=== PATIENT | female | born 1960 | race Caucasian/White ===

== ENCOUNTER → 2023-11-26 13:14 | Outpatient (REF) | payer BC, SELFPAY | LOC: WDC 13:14 | PROVIDERS: ATTENDING PHYSICIAN Nurse Practitioner Adult Health | DX: Z12.31 Encounter for screening mammogram for malignant neoplasm of breast (principal) | CPT/HCPCS: 77063; 77067 ==

== ENCOUNTER 2024-02-04 16:28 | Day surgery (SDC) | payer BC, SELFPAY ==
[2024-02-04] VITALS (15 sets, daily range): BP systolic 134–182; BP diastolic 64–98; BMI 25.2
--- NOTE | 2024-02-04 05:43 | EDRN ---
Pt says she went to bed at 2200 and woke at 0100 with abd pain in middle upper abdomen. Pain is constant and if pt stands, she notices the pain lessens. Pain described as dull and achy. No n/v, cp, sob, fever/chills/cough, urinary symptoms,
change in appetite. 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 No abd surgeries. Pt had normal bowel movement before leaving house to come to ED. No diarrhea. Pt admits to drinking 2 glasses
of wine daily since September.
[2024-02-04 05:58] LABS: % Basophils 0.2 % (0-2); % Eosinophils 0.3 % (0-6); % Immature Granulocytes 0.4 % (0-0.5); % Lymphocytes 10.2 % (20.5-51.1); % Monocytes 6.4 % (1.7-9.3); % Neutrophils 82.5 % (42.2-75.2); Absolute Immature Granulocytes 0.1 10^3/uL (0-0.05); Absolute Lymphocytes 1.3 10^3/uL (1.2-3.4); Absolute Monocytes 0.8 10^3/uL (0.1-0.6); Absolute Neutrophils 10.4 10^3/uL (1.4-6.5); Hematocrit 36.7 % (37.0-47.0); Hemoglobin 12.9 g/dL (12.0-16.0); Mean Corp Hgb Conc. 35.1 g/dL (33.0-37.0); Mean Corpuscular Hgb 31.7 pg (27.0-31.0); Mean Corpuscular Volume 90.2 fL (81.0-99.0); Mean Platelet Volume 10.8 fL (7.4-10.4); Nucleated Red Blood Cells % 0 %; Platelet Count 162 10^3/uL (130-400); Red Blood Cell Count 4.07 10^6/uL (4.20-5.40); Red Cell Dist. Width 12.8 % (11.5-14.5); White Blood Cell Count 12.6 10^3/uL (4.8-10.8)
[2024-02-04 06:12] LABS: Urine Albumin Negative (Neg - Trace); Urine Bilirubin Negative (Negative); Urine Character Clear (Clear); Urine Color Yellow; Urine Glucose Negative (Negative); Urine Ketone Negative (Negative); Urine Leukocyte Negative (Negative); Urine Nitrite Negative (Negative); Urine Occult Blood Trace (Negative); Urine Urobilinogen Negative (Neg - 1+); Urine pH 6.5 (5.0-9.0)
[2024-02-04 06:13] LABS: Blood Urea Nitrogen 16 mg/dl (7-17); Glucose 109 mg/dl (70-99)
[2024-02-04 06:14] LABS: ALT (SGPT) 47 U/L (0-35); AST (SGOT) 49 U/L (14-36); Albumin 4.8 g/dl (3.5-5.0); Alkaline Phosphatase 76 U/L (38-126); Calcium 9.5 mg/dl (8.4-10.2); Carbon Dioxide 27 mmol/L (22-30); Chloride 104 mmol/L (98-107); Estimated Creatinine Clearance 81 ml/min; Lipase 85 U/L (23-300); Potassium 4.3 mmol/L (3.5-5.1); Sodium 139 mmol/L (135-145); Total Bilirubin 1.6 mg/dl (0.2-1.3); Total Protein 7.3 g/dl (6.3-8.2); eGFR > 60.00
--- NOTE | 2024-02-04 06:17 | ED.GENMED ---
History of Present Illness
General
Chief Complaint: Abdominal Pain
Time Seen by Provider: 02/04/24 06:03
History of Present Illness
History of Present Illness:
64-year-old female without significant past medical history presenting to the emergency department for acute onset of abdominal pain. Patient reports that she woke up around 1 AM with generalized abdominal pain. She reports that the pain has been
constant and dull. Denies ever having symptoms like this in the past. Pain has not been relieved. Did have a normal bowel movement prior to arrival. Denies any associated nausea or vomiting. Denies any abdominal surgeries in the past. Denies
any history of reflux. Denies any association with food. She did not try any medications prior to arrival for symptoms. Denies fever or systemic symptoms. Denies chest pain or difficulty breathing. Denies urinary complaints. Does note a lot of
stress at home, has been caring for her father. Denies additional acute medical complaints.
Past History
Past History
ED Past Medical History: None
ED Past Surgical History: Gynecological and Other ([place] teeth)
Social History
Tobacco: Non-smoker
Alcohol: Occasional
Drug: None
Living: with family
Employment: Employed
Family History
Family History: Other (CVA at a young age)
Phy Exam
Physical Exam
Physical Exam:
General: Well-appearing, no clinical signs of dehydration, nontoxic and in no acute distress
HEENT: protecting airway
Neck: appears supple
CV: Normal heart rate, regular rhythm, no evidence of cyanosis
Resp: No accessory muscle use, no increased work of breathing, lungs clear to auscultation bilaterally
Abd: Soft and non-distended, generalized tenderness, slightly more focal to the right lower quadrant, normal bowel sounds
Extremities: No deformities, no swelling, no erythema, pulses and sensation intact
Neuro: alert, no focal neurologic deficit
: deferred
Rectal: deferred
Psych: Normal affect
Skin: Intact
Course
Orders/Labs/Results
Orders:
Orders
02/04/24 05:35
IV Insert/Care/Rem.- Treatment PRN
02/04/24 05:46
Complete Blood Count/With Diff Urgent
Comprehensive Metabolic Panel Urgent
Lipase Urgent
02/04/24 06:04
Urinalysis Reflex To Culture Urgent
Date Specimen was Collected: 02/04/24
Time Specimen was Collected: 06:02
Urine Microscopic Reflex Cult Urgent
02/04/24 06:15
CT Abd/pel W Iv And Oral Contr Urgent
Comment:
Reason For Exam: general pain, periumbilical, RLQ
0.9% Sodium Chloride 500 ml [Nss] 500 ml IV BOLUS
Iohexol [Omnipaque] See Protocol PO NOW STA
Ondansetron Injectable [Zofran] 4 mg IV NOW STA
02/04/24 07:10
US Abdomen Complete/Upper Urgent
Reason For Exam: RUQ
02/04/24 09:42
CefTRIAXone [Rocephin] 1,000 mg IV NOW STA
02/04/24 09:43
MetroNIDAZOLE 500 MG/100 ML [Flagyl 500 mg] 100 ml IV NOW
Abnormal Lab Results
02/04/24 02/04/24
05:46 06:04
WBC 12.6 H 10^3/uL
(4.8-10.8)
RBC 4.07 L 10^6/uL
(4.20-5.40)
Hct 36.7 L %
(37.0-47.0)
MCH 31.7 H pg
(27.0-31.0)
MPV 10.8 H fL
(7.4-10.4)
Abs Immat Gran (auto) 0.1 H 10^3/uL
(0-0.05)
Absolute Neuts (auto) 10.4 H 10^3/uL
(1.4-6.5)
Absolute Monos (auto) 0.8 H 10^3/uL
(0.1-0.6)
Neutrophils % 82.5 H %
(42.2-75.2)
Lymphocytes % 10.2 L %
(20.5-51.1)
Glucose 109 H mg/dl
(70-99)
Total Bilirubin 1.6 H mg/dl
(0.2-1.3)
AST 49 H U/L
(14-36)
ALT 47 H U/L
(0-35)
Ur Occult Blood Reflex Trace A
(Negative)
Urine RBC 3-6 A /HPF
(0-2)
02/04/24 05:46
02/04/24 05:46
Vital Signs
Initial and Last Documented VS:
Initial Vital Signs
Temp Pulse Resp BP Pulse Ox
98.2 F 76 16 182/98 99
02/04/24 05:10 02/04/24 05:10 02/04/24 05:10 02/04/24 05:10 02/04/24 05:10
Last Documented Vital Signs
Temp Pulse Resp BP Pulse Ox
98.2 F 74 16 149/85 98
02/04/24 05:10 02/04/24 06:32 02/04/24 06:32 02/04/24 06:32 02/04/24 06:32
MDM/Problems Addressed
MDM/Problems Addressed:
64-year-old female presenting for acute onset of abdominal pain, onset prior to arrival. Vital signs are significant for hypertension.
On physical exam, patient is well-appearing, resting comfortably, nontoxic. Benign cardiac and pulmonary exam. On abdominal exam, abdomen is soft, nondistended with normal bowel sounds. She has generalized tenderness, slightly more focal to the
right lower quadrant. Differential considerations include enteritis versus gastritis versus appendicitis. No focal right upper quadrant tenderness, lower suspicion for cholelithiasis or cholecystitis. Patient had nursing protocol placed prior to
my assessment, with CBC consistent with leukocytosis. For this reason do feel patient warrants CT abdominal imaging. Will obtain p.o. and IV contrast for rule out acute intra-abdominal pathology. Will also obtain urinalysis.
07:30 - patient with slight elevation in bilirubin and mild transaminitis. For this reason will obtain right upper quadrant ultrasound imaging as well.
08:00 - Ultrasound within normal limits, pending CT.
09:50 -CT consistent with acute appendicitis. Antibiotics ordered. Surgery on-call made aware, Dr. Magana. Patient updated
*Critical Care Note
Total Time (30-74mins, 75-104mins- exclusive of procedures): Not Applicable
ED Attending Note
-
Portions of this chart may have been created with voice recognition software.� Occasional wrong word or��sound alike� substitutions may have occurred due to the inherent limitations of voice recognition software.
Discharge Plan
Departure
Prescriptions:
No Action
No Current Medications
0
Referrals:
Mikayla Jacome CRNP [Family Provider] -
Interventions
Interventions:
*Risk Screen - Suicide Last Done: 02/04/24 05:10
*General Assessment Last Done: 02/04/24 05:10
*Neglect/Abuse Screening Last Done: 02/04/24 05:10
ED- Fall Risk Assessment Last Done: 02/04/24 05:10
*ED COVID-19 Vaccine History Last Done: 02/04/24 05:10
BL-Bjpinz-Qmciesdowy Assessment Last Done: 02/04/24 05:58
Discharge Date and Time
Print Language: AMERICAN
[2024-02-04] MEDS: NSS 500 IV (06:26)
[2024-02-04] MEDS: ZOFRAN 4 MG IV (06:27)
[2024-02-04 06:28] LABS: Urine Squamous Cell 0-2 /LPF (Few); Urine White Cell 0-2 /HPF (0-5)
[2024-02-04] MEDS: OMNIPAQUE 50 ML PO (06:30)
[2024-02-04] MEDS: ROCEPHIN 1000 MG IV (10:29)
[2024-02-04] MEDS: FLAGYL 500 MG 100 IV (10:29)
--- NOTE | 2024-02-04 13:21 | HPS.HSE ---
Addendum entered and electronically signed by Homero Magana MD 02/04/24 16:20:
Patient seen and examined with surgical PRODUCT PROMOTER SALES PERSON. Agree with documented history and physical consistent with my simultaneous evaluation and examination.
HPI: 64-year-old female with acute onset of abdominal pain waking her from sleep which is localized to the right lower quadrant. No similar episodes like this in the past. Some mild anorexia and nausea but no vomiting. She moved her bowels this
a.m. which was a bit looser but none since.
No significant past medical history. No past abdominal surgical history.
AF VSS
ABD: Soft, nondistended, tenderness palpation localized in the right lower quadrant with voluntary guarding or rebound.
CT abdomen/pelvis: Dilated fluid-filled appendix with surrounding phonatory changes and wall enhancement consistent with acute appendicitis.
Assessment/plan: 64-year-old female presented with acute appendicitis. I reviewed with the patient treatment options including both operative and nonoperative management of acute appendicitis. We discussed the risks and benefits of various
approaches and the patient wishes to pursue appendectomy for definitive care.
Laparoscopic appendectomy was reviewed in detail including the operative technique, alternative treatment options, benefits and potential risk such as but not limited to bleeding, infectious or related complications, iatrogenic injury to surrounding
viscera. We discussed the typical postoperative recovery pending operative findings. Any of the patient's concerns or questions were fully addressed and written informed consent was obtained.
Patient has been added onto the OR schedule for appendectomy today
Ceftriaxone and Flagyl initiated in the emergency department
Original Note:
Family Physician
-
Family Physician: Mikayla Jacome
Chief Complaint
-
abdominal pain
History of Present Illness
Ms Gamez is a 64 yo female with a h/o left radial orif and gilbert's presents through the ED with generalized abdominal pain which awakened her from sleep around 1am now localizing to the right lower quadrant. She denies n/v. She was able to pass a
BM prior to arrival. She denies urinary changes. She denies fevers or chills.
Medical History
Past Medical History
Past Medical History: Reports Other (Gilbert syndrome, Vit D def)
Past Surgical History: Reports Orthopedic (left radial ORIF)
Social History
Tobacco: Non-smoker
Alcohol: Occasional
Living: With Family (cares for elderly father)
Employment: Employed (MA at [employer])
Family History
Family History: Cancer (colon ca in father)
Allergies / Home Medications
Allergies reflects when Allergies were last updated in [facility].
Home Medications with original date entered in [facility]
Allergy/Medication List:
Patient Allergies
Allergy/AdvReac Type Severity Reaction Status Date / Time
No Known Allergies Allergy Verified 02/04/24 05:09
�Medication �Instructions �Recorded �Confirmed �Type
No Meds [No Current Medications] 02/04/24 02/04/24 History
Review of Systems
-
A 12 point ROS was completed and negative except as noted: Yes
Physical Exam
Vital Signs
Vital Signs
Temp Pulse Resp BP Pulse Ox
98.2 F 74 16 149/85 98
02/04/24 05:10 02/04/24 06:32 02/04/24 06:32 02/04/24 06:32 02/04/24 06:32
Physical Exam
General: Well Developed and Well Nourished
HEENT: Moist mucous membranes
GI: Soft, Non Distended and Tender (rlq)
Skin: Warm
Neuro: Awake, Alert and AO x 3
Psych: Calm
Laboratory Results
-
02/04/24 05:46
02/04/24 05:46
Laboratory Results
Total Bilirubin 1.6 mg/dl (0.2-1.3) H 02/04/24 05:46
AST 49 U/L (14-36) H 07/06/24 05:46
ALT 47 U/L (0-35) H 02/04/24 05:46
Alkaline Phosphatase 76 U/L (38-126) 02/04/24 05:46
Lipase 85 U/L (23-300) 02/04/24 05:46
Data Reviewed
-
CT Scan: Image Personally Visualized and interpreted, Report Reviewed by me, Discussed with Physician and Discussed with Patient
Lab Data: Labs Reviewed by me, Discussed with Physician and Discussed with Patient
Old Records: Reviewed
Impression/Plan
-
IMPRESSION:
64 yo female with a h/o Gilbert's and no prior abdominal surgeries presenting with abdominal pain which began around 1 am this morning and is localized to the RLQ. No f/c. No n/v. Leukocytosis on laboratory findings. LFT's abnormal in keeping with
h/o Gilbert's. CT imaging reviewed with findings of acute appendicitis without abscess/free air or evidence of perforation
PLAN:
Keep NPO
OR later today for lap appi
ABX given in ED
Analgesics/antiemetics prn
IVF while NPO
SCD's for preop vte ppx, lovenox post op
[2024-02-04] MEDS: NSS 1000 IV ×2 (15:14→18:54)
--- NOTE | 2024-02-04 16:20 | W.SUR.PREOP ---
Pre-Operative Surgical Note
-
I have examined this patient prior to the performance of the scheduled procedure.
The patient's condition is unchanged from the time of the current History and
Physical and the patient is able to undergo the scheduled procedure.
--- NOTE | 2024-02-04 18:03 | W.IMMPOSTOP ---
Addendum entered and electronically signed by Homero Magana MD 02/04/24 18:12:
#[id number]
Original Note:
Surgical Immed Post Op Note
-
Primary Surgeon: Izzy
Assisting Surgeon: Jae Barreto PGY-1
Pre-op Diagnosis: Acute appendicitis
Post-op Diagnosis: Acute appendicitis
Procedure Performed: Laparoscopic appendectomy
Anesthesia Type: GETA +0.25% Marcaine
Specimen / Cultures: Appendix
Estimated Blood Loss: 6 mL
Complications: None immediate
Operative Findings: Acutely inflamed and indurated appendix. Retroperitoneal/retrocecal location tucked underneath ileocecal valve/terminal ileum. Appendix carefully mobilized without disruption. No purulence, no abscess. Appendix divided flush
with the cecum utilizing Endo BLANCA steele 30 mm stapler.
Plan: Routine postoperative care, continue antibiotics initially postoperatively, advance diet as tolerated
Patient's updated via phone call postop
[2024-02-04] MEDS: ZOSYN 50 IV (19:36)
--- NOTE | 2024-02-04 19:45 | PTCARENOTE ---
Report received from pacu. Aaox3. Three lap sites to abd CDI and open to air w/ surgi glue present. Vss. Nss. @80cc/hr. Zosyn infusing. Plan of care updated. Call parry in reach. Will monitor.
[2024-02-05] MEDS: ZOSYN 50 IV ×2 (03:12→07:51)
[2024-02-05 03:19] VITALS: BP 144/76
[2024-02-05] MEDS: NSS 1000 IV (06:25)
[2024-02-05 07:30] VITALS: BP 146/71
[2024-02-05] MEDS: TYLENOL 650 MG PO (07:50)
--- NOTE | 2024-02-05 10:06 | W.PN.GS2 ---
Addendum entered and electronically signed by Homero Magana MD 02/05/24 10:18:
Patient seen and examined with surgical FARM TECHNICIAN. Agree with documented progress note
Patient doing well with her postoperative recovery. Minimal incisional pain. No significant abdominal pains.
Tolerating dietary advancement without any nausea, vomiting abdominal bloating or distention
AFVSS
ABD: Soft, nondistended, surgical sites with glue dressings, clean, no erythema, no drainage.
A/P: POD #1 status post lap appendectomy
DC home
No further antibiotics on discharge as uncomplicated acute appendicitis
Outpatient follow-up in 2 weeks with myself, DC instructions reviewed
Original Note:
Today's Communication / Plan
-
Dispo planning
Assessment / Plan
-
64 yo female who presented with acute appendicitis now POD #1 lap appi
AFVSS
Tolerating diet
Following expected post operative course
--Continue regular diet
--OTC analgesics upon d/c
--No need for further abx
Dispo planning
Subjective Data
-
Date of Service: February 05, 2024
Patient seen and examined at bedside with Dr. Magana. Denies n/v. Tolerating diet. Minimal post op soreness. Occasional gas cramping but passing flatus.
Objective Data
-
Intake and Output
02/04/24 02/05/24 02/06/24
06:59 06:59 06:59
Intake Total 1581 / 1581 610 / 610
Balance 1581 / 1581 610 / 610
Intake:
Oral fluids 480 / 480 240 / 240
IV fluids (Total) 1001 / 1001 320 / 320
NSS /
Normosol 200 / 200
IV piggybacks 100 / 100 50 / 50
Other:
Number of approximated SMALL 1
amounts of urine
Number of approximated LARGE 2
amounts of urine
Vital Signs
Temp Pulse Resp BP Pulse Ox
98.1 F 62 16 146/71 98
02/05/24 07:30 02/05/24 07:30 02/05/24 07:30 02/05/24 07:30 02/05/24 07:30
Lab Results
02/04/24 05:46
02/04/24 05:46
Calcium 9.5 mg/dl (8.4-10.2) 02/04/24 05:46
Total Bilirubin 1.6 mg/dl (0.2-1.3) H 02/04/24 05:46
AST 49 U/L (14-36) H 02/04/24 05:46
ALT 47 U/L (0-35) H 02/04/24 05:46
Alkaline Phosphatase 76 U/L (38-126) 02/04/24 05:46
Total Protein 7.3 g/dl (6.3-8.2) 02/04/24 05:46
Albumin 4.8 g/dl (3.5-5.0) 02/04/24 05:46
Physical Exam
-
NAD
ABD soft, NT, ND
Incisions well approximated, intact glue, minimal ecchymosis
[2024-02-05 10:50] VITALS: BP 154/83
== END 2024-02-05 11:21 | disposition home or self-care (01) ==
LOC: OR 16:28
PROVIDERS: Emergency Medicine; ATTENDING PHYSICIAN Surgery; EMERGENCY PHYSICIAN Student in an Organized Health Care Education/Training Program; FAMILY PHYSICIAN Nurse Practitioner Adult Health
DX: K35.80 Unspecified acute appendicitis (principal)
CPT/HCPCS: 44970; 88304; 74177; 76700; 80053; 81003; 81015; 83690; 85025; 96361; 96365; 96375; 99285; Q9967

== ENCOUNTER → 2024-04-18 17:48 | Outpatient (REF) | payer BC, SELFPAY ==
[2024-04-18 20:27] LABS: ALT (SGPT) 51 U/L (0-35); AST (SGOT) 36 U/L (14-36); Albumin 4.5 g/dl (3.5-5.0); Alkaline Phosphatase 87 U/L (38-126); Blood Urea Nitrogen 21 mg/dl (7-17); Calcium 9.7 mg/dl (8.4-10.2); Carbon Dioxide 27 mmol/L (22-30); Chloride 102 mmol/L (98-107); Glucose 103 mg/dl (70-99); HDL Cholesterol 79 mg/dl; LDL Cholesterol, Calculated 188 mg/dl; Potassium 4.5 mmol/L (3.5-5.1); Sodium 144 mmol/L (135-145); Total Bilirubin 1.3 mg/dl (0.2-1.3); Total Cholesterol 293 mg/dl (50-199); Total Protein 7.3 g/dl (6.3-8.2); Triglyceride 131 mg/dl (10-149); Very Low Density Lipoprotein 26 mg/dl (0-30); eGFR > 60.00
[2024-04-18 20:42] LABS: Vitamin D, 25-OH*** 20.8 ng/mL (30-80)
[2024-04-18 20:56] LABS: TSH Reflex To Free T4 2.41 uIU/ml (0.47-4.68)
[2024-04-18 21:15] LABS: Vitamin B12 403 pg/ml (239-931)
== END ==
LOC: CLAB 17:48
PROVIDERS: ATTENDING PHYSICIAN Nurse Practitioner Adult Health
DX: Z00.00 Encounter for general adult medical examination without abnormal findings (principal); E53.9 Vitamin B deficiency, unspecified; E78.00 Pure hypercholesterolemia, unspecified
CPT/HCPCS: 36415; 80053; 80061; 82306; 82607; 84443

== ENCOUNTER → 2025-01-02 10:44 | Outpatient (REF) | payer BC, SELFPAY | LOC: WDC 10:44 | PROVIDERS: ATTENDING PHYSICIAN Nurse Practitioner Adult Health | DX: Z12.31 Encounter for screening mammogram for malignant neoplasm of breast (principal) | CPT/HCPCS: 77063; 77067 ==

== ENCOUNTER → 2025-02-13 08:30 | Outpatient (REF) | payer BC, SELFPAY ==
[2025-02-13 09:31] LABS: Hematocrit 40.4 % (37.0-47.0); Hemoglobin 13.2 g/dL (12.0-16.0); Mean Corp Hgb Conc. 32.7 g/dL (33.0-37.0); Mean Corpuscular Volume 92.9 fL (81.0-99.0); Nucleated Red Blood Cells % 0 %; Platelet Count 188 10^3/uL (130-400); Red Cell Dist. Width 13.0 % (11.5-14.5)
[2025-02-13 09:57] LABS: ALT (SGPT) 34 U/L (0-35); AST (SGOT) 27 U/L (14-36); Albumin 4.7 g/dl (3.5-5.0); Alkaline Phosphatase 71 U/L (38-126); Blood Urea Nitrogen 13 mg/dl (7-17); Calcium 9.7 mg/dl (8.4-10.2); Carbon Dioxide 28 mmol/L (22-30); Chloride 105 mmol/L (98-107); Glucose 103 mg/dl (70-99); HDL Cholesterol 66 mg/dl; LDL Cholesterol, Calculated 163 mg/dl; Potassium 4.9 mmol/L (3.5-5.1); Sodium 140 mmol/L (135-145); Total Protein 7.3 g/dl (6.3-8.2); Very Low Density Lipoprotein 28 mg/dl (0-30); eGFR > 60.00
[2025-02-13 10:14] LABS: Vitamin D, 25-OH*** 31.3 ng/mL (30-80)
[2025-02-13 11:34] LABS: Vitamin B12 817 pg/ml (239-931)
== END ==
LOC: REG 08:30
PROVIDERS: ATTENDING PHYSICIAN Nurse Practitioner Adult Health
DX: Z00.00 Encounter for general adult medical examination without abnormal findings (principal); E78.00 Pure hypercholesterolemia, unspecified; Z13.29 Encounter for screening for other suspected endocrine disorder; E53.9 Vitamin B deficiency, unspecified; Z79.899 Other long term (current) drug therapy
CPT/HCPCS: 36415; 80053; 80061; 82306; 82607; 84443; 85025

== ENCOUNTER → 2025-06-05 10:18 | Outpatient (REF) | payer BC, SELFPAY | LOC: RAD 10:18 | PROVIDERS: ATTENDING PHYSICIAN Nurse Practitioner Adult Health | DX: Z78.0 Asymptomatic menopausal state (principal) | CPT/HCPCS: 77080 ==